=== PATIENT | female | born 1985 | race Caucasian/White ===

== ENCOUNTER 2017-05-26 19:51 | Emergency (ER) | payer SELFPAY ==
[~2017-05-26] VITALS: Ht 167.6 cm; Wt 63.6 kg
[2017-05-26 19:54] VITALS: BP 126/62; PULSE 87; RESP 22; TEMP 97.1; O2SAT 97
[2017-05-26] MEDS ORDERED: VENL75TA2 PO (20:07)
[2017-05-26] MEDS ORDERED: NORE0.3514 PO (20:07)
[2017-05-26] MEDS ORDERED: TRAM50 PO (20:42)
[2017-05-26] MEDS ORDERED: PENI500T PO (20:42)
--- NOTE | 2017-05-26 20:43 | PD ---
HPI Chief Complaint: Oral / Dental Pain or Problem Time Seen by Provider: 20:29 Travel History International Travel<30 days: No Contact w/Intl Traveler<30days: No Traveled to known affect area: No History of Present Illness HPI 32-year-old female here with dental pain. Right front central incisor fractured while she was eating a [place] helm. She has extreme pain. She is here visiting from [place] for bike week and unable to follow-up with the dentist until she returns on Friday. Symptom severity is moderate. No aggravating or alleviating factors. PFSH Past Medical History Anxiety: Yes Tetanus Vaccination: Unknown Influenza Vaccination: No ?: Not Past Surgical History Gynecologic Surgery: Yes (LAPROSCOPIC "ENDOMETRIOSIS SX") Social History Alcohol Use: No Tobacco Use: Yes (VAPES) Substance Use: No Allergies-Medications (Allergen,Severity, Reaction): Coded Allergies: No Known Allergies (Unverified , 05/26/17) Reported Meds & Prescriptions Reported Meds & Active Scripts Active Penicillin V Potassium 500 Mg Tab 500 Mg PO Q6H 7 Days Ultram (Tramadol HCl) 50 Mg Tab 50 Mg PO Q6H PRN Reported Minda-35 (Norethindrone) 0.35 Mg Tab 1 Tab PO DAILY Venlafaxine ER 24 HR (Venlafaxine HCl) 75 Mg Tab 75 Mg PO DAILY Review of Systems Except as stated in HPI: all other systems reviewed are Neg General / Constitutional: No: Fever Physical Exam Narrative GENERAL: Alert 32-year-old female crying and rocking back and forth while sitting on the stretcher SKIN: Warm and dry. HEAD: Normocephalic. EYES:No injection or drainage. NECK: Supple MOUTH: Right central incisor fractured midway through the tooth. Data Data Last Documented VS Vital Signs Date Time Temp Pulse Resp B/P (MAP) Pulse Ox O2 Delivery O2 Flow Rate FiO2 05/26/17 19:54 97.1 87 22 126/62 (83) 97 Orders Orders Ketorolac Inj (Toradol Inj) (05/26/17 20:45) Ed Discharge Order (05/26/17 20:44) MDM Medical Decision Making Medical Screen Exam Complete: Yes Emergency Medical Condition: Yes Differential Diagnosis Dental fracture, dental caries, dentalgia Narrative Course 32-year-old female here with fractured rate central incisor. She is visiting from out of town and unable to follow up with the dentist. She purchased and applied [id number] tooth putty to put over the fractured site to protect the root. Diagnosis Primary Impression: Tooth fracture Qualified Codes: S02.5XXA - Fracture of tooth (traumatic), initial encounter for closed fracture Referrals: Dentist Scripts Penicillin V Potassium (Penicillin V Potassium) 500 Mg Tab 500 MG PO Q6H for Infection for 7 Days, #28 TAB 0 Refills Prov: Nancie Hayden 05/26/17 Tramadol (Ultram) 50 Mg Tab 50 MG PO Q6H Y for PAIN, #12 TAB 0 Refills Prov: Nancie Hayden 05/26/17 Disposition: 01 DISCHARGE HOME Condition: Stable Nancie Hayden May 26, 2017 20:43
[2017-05-26] MEDS ORDERED: KETOROLAC TROMETHAMINE 60 MG/2 ML (IM) VIAL IM ONE (20:45)
== END 2017-05-26 20:59 | disposition home or self-care (01) ==
LOC: NEPK 19:51
DX: S02.5XXA Fracture of tooth (traumatic), initial encounter for closed fracture (principal); F41.9 Anxiety disorder, unspecified; F17.290 Nicotine dependence, other tobacco product, uncomplicated; Z79.899 Other long term (current) drug therapy; W22.8XXA Striking against or struck by other objects, initial encounter
CPT/HCPCS: 96372; 99283; J1885